=== PATIENT | male | born 1960 | race Two or more races ===

== ENCOUNTER 2020-11-12 06:38 | Day surgery (SDC) | payer MEDICARE, OTHER ==
[~2020-11-12] VITALS: Ht 170.2 cm; Wt 76.2 kg
[~2020-11-12 06:38] MED LIST: CLOP75TA28 PO; DIGO0.12 PO; DOXY100C2 PO; FAMO20TA10 PO; GABA300C10 PO; MAGN1TAB29 PO; MYCO500T PO; PRAV20TA3 PO; PRE5T PO; RIVA10TA PO; TACR1GRA PO; VALG450T PO
[2020-11-12] MEDS ORDERED: LIDOCAINE VISCOUS 2% 15ML UD PO ONE (08:30)
[2020-11-12] MEDS ORDERED: MIDAZOLAM HCL 5 MG/ML-1ML VIAL IV ONE (08:30)
[2020-11-12] MEDS ORDERED: fentaNYL CITRATE 100 MCG/2 ML VL IV ONE (08:30)
[2020-11-12] MEDS ORDERED: MIDAZOLAM HCL 1MG/1ML-2 ML VIAL ONE (08:47)
[2020-11-12] MEDS ORDERED: SODIUM CHLOR 0.9% PF (SALINE LOCK) 10ML VIAL/SYR IV ONE (10:00)
== END 2020-11-12 10:13 | disposition home or self-care (01) ==
LOC: CATH 06:38
PROVIDERS: ATTEND Internal Medicine Cardiovascular Disease
DX: Z13.6 Encounter for screening for cardiovascular disorders (principal); I38 Endocarditis, valve unspecified; Z98.890 Other specified postprocedural states; Z79.899 Other long term (current) drug therapy
CPT/HCPCS: 93312; J2250; J3010; J7030; U0003; 99152